=== PATIENT | female | born 1940 | race Caucasian/White ===

== ENCOUNTER → 2016-10-22 | Outpatient (CLI) | payer MEDICARE, OTHER ==
[~2016-10-22] MED LIST: ACET-2321 PO; ASPI81TA2 PO; CEPH-583 PO; FOSI20TA3 PO; FURO20TA4 PO; HYDR25TA PO; NIFE-17 PO; POTA-12 PO
--- NOTE | 2016-10-22 09:53 | DI ---
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 FINDINGS: Both kidneys are present with normal cortical thickness and echogenicity. Minimal right and mild left hydronephrosis. No obvious renal stone disease or mass. The right kidney measures 11.9 cm in length, and the left kidney measures 11 cm in length. Right ureteral jet was visualized. No debris or mass seen within the bladder. IMPRESSION: Minimal right and mild left hydronephrosis. .
== END ==
LOC: IMA 08:47
PROVIDERS: ATTEND Obstetrics & Gynecology Gynecology
DX: N81.3 Complete uterovaginal prolapse (principal); N13.30 Unspecified hydronephrosis